=== PATIENT | male | born 1990 | race Caucasian/White ===

== ENCOUNTER 2016-07-25 14:49 | Emergency (ER) | payer OTHER ==
[2016-07-25 15:01] VITALS: BMI 23.6
[2016-07-25 15:07] VITALS: BP 132/72; PULSE 78; TEMP 98.8; O2SAT 97
[2016-07-25] MEDS ORDERED: Tetracaine 0.5% Ophth (OR ONLY) ONE (15:11)
[2016-07-25] MEDS ORDERED: Fluorescein 1 mg Ophthalmic Strip ONE (15:11)
--- NOTE | 2016-07-25 15:24 | C.PDOC ---
History Of Present Illness 26 y/o male presents to ED with complaints of right eye foreign body sensation for 4 days. Patient states while walking "felt something go into eye" and thinks he sees foreign body in eye. Patient denies vision loss but reports photophobia. No other complaints at this time. r eye fb sensation x 4 DAYS. ONSET WHILE WALKING "FELT SOMETHING GO INTO EYE". PS THINKS SEE FB. NO VISION LOSS. +PHOTOPHOBIA. EXAM MILD DIST HEENT L EYE WNL. R EYE CONJ INJECTED, +PHOTOPHOBIA. PERRLA. +corneal abrasion 11 o clock w dark fb Time Seen by Provider: 07/25/16 15:12 Chief Complaint (Nursing): Foreign Body History Per: Patient Onset/Duration Of Symptoms: Days Current Symptoms Are (Timing): Still Present Quality (Ear): Foreign Body Past Medical History Reviewed: Historical Data, Nursing Documentation, Vital Signs Vital Signs: Last Vital Signs Temp 98.8 F 07/25/16 15:01 Pulse 78 07/25/16 15:01 Resp 20 07/25/16 15:53 BP 132/72 07/25/16 15:01 Pulse Ox 97 07/25/16 15:54 Family History: States: Unknown Family Hx - Social History Hx Alcohol Use: Yes Hx Substance Use: No - Immunization History Hx Tetanus Toxoid Vaccination: Yes (2016) Hx Influenza Vaccination: No Hx Pneumococcal Vaccination: No Review Of Systems Except As Marked, All Systems Reviewed And Found Negative. Constitutional: Negative for: Fever, Chills Eyes: Negative for: Vision Change Skin: Negative for: Rash Neurological: Negative for: Weakness, Headache, Dizziness Physical Exam - Physical Exam Appears: Other (Mild distress) Skin: Normal Color, Warm Head: Atraumatic, Normacephalic Eye(s): bilateral: PERRL, EOMI, Photophobia, right: Normal Inspection (Within normal limits), Other (+Corneal abrasion 11oclock with dark foreign body) Oral Mucosa: Moist Neck: Normal ROM Respiratory: No Rales, No Rhonchi, No Wheezing Gastrointestinal/Abdominal: Soft, No Tenderness, No Guarding, No Rebound Extremity: Normal ROM Neurological/Psych: Oriented x3, Normal Speech, Normal Cognition ED Course And Treatment O2 Sat by Pulse Oximetry: 97 (RA) Pulse Ox Interpretation: Normal Disposition Counseled Patient/Family Regarding: Diagnosis, Need For Followup, Rx Given - Disposition Referrals: Sergey Jones MD [Staff Provider] - [facility] [Outside] 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 MD/DO has examined the patient and agrees with the treatment plan. - Scribe Statement The provider has reviewed the documentation as recorded by the Scribshanique Copeland All medical record entries made by the Scribe were at my direction and personally dictated by me. I have reviewed the chart and agree that the record accurately reflects my personal performance of the history, physical exam, medical decision making, and the department course for this patient. I have also personally directed, reviewed, and agree with the discharge instructions and disposition. PROCEDURES - FB Removal Eye Right Consent Obtained: Verbal Consent Time Out Performed: Yes Location: Right Eye Topical Anesthetic Used: Tetracaine Foreign Body Material: Other (UNK) Evidence of Corneal Penetration: No Technique: Irrigation, Cotton Tip Swab Procedure Performed Under: Direct Visualization w/Magnification, Other (w fluorescein stain, queen lamp) Post-Procedure Medication: Topical Anesthetic Patient tolerated procedure: Well Complications: Cornal Abrasion
[2016-07-25 15:53] VITALS: RESP 20
== END 2016-07-25 15:53 | disposition home or self-care (01) ==
LOC: C.ER 14:49
DX: T15.01XA Foreign body in cornea, right eye, initial encounter (principal); X58.XXXA Exposure to other specified factors, initial encounter